=== PATIENT | male | born 1970 ===

== ENCOUNTER 2021-06-27 13:05 | Outpatient (CLI) | payer MEDICARE, SELFPAY ==
--- NOTE | 2021-06-27 13:14 | XR_ITS ---
WS: [id number] Exam: XR chest 2V* [id number] Date/Time of Exam: 06/27/2021 1:14 PM Reason For Exam: EXERTIONAL DYSPNEA No priors. Findings: The lungs are clear and fully expanded. Costophrenic angles are sharp. No infiltrates. Bronchovascula r relief appears normal. Cardiac silhouette is unremarkable. Bony elements are intact. XR/XR chest 2V* [id number] IMPRESSION: Unremarkable chest radiograph.
== END 2021-06-27 13:06 | disposition home or self-care (01) ==
LOC: RAD 13:10
PROVIDERS: PCP Registered Nurse; Visit Provider Internal Medicine Pulmonary Disease
DX: R06.09 Other forms of dyspnea (principal)
CPT/HCPCS: 71046

== ENCOUNTER 2021-11-30 14:15 | Outpatient (CLI) | payer MEDICARE, SELFPAY ==
--- NOTE | 2021-11-30 14:54 | PFTS_ITS ---
Date of Study:11/30/21 Date of Dictation: 12/02/2021 MECHANICS: Prebronchodilator forced vital capacity (FVC) is normal. Prebronchodilator forced expiratory volume in one second (FEV1) is normal. FEV1/FVC is normal. There is no postbronchodilator study. FLOW VOLUME LOOP: Normal . LUNG VOLUMES: Total lung capacity (TLC) is normal. Residual volume (RV) is reduced. DIFFUSING CAPACITY FOR CARBON MONOXIDE: Normal . INTERPRETATION: The pulmonary function tests are normal. Clinical correlation recommended. MTDD
--- NOTE | 2021-11-30 15:30 | CT_ITS ---
WS: [id number] CT CHEST CT-HIGH RESOLUTION, NONCONTRAST. HISTORY: Checking for bird fanciers lung disease. Technique: High-resolution chest CT is performed in inspiration, expiration, supine and prone positio jac. All CT scans at [facility] [place] use at least one of these dose optimization techniques: automated exposure control; mA and/or kV adjustment per patient size (includes targeted exams where dose is mat ched to clinical indication); or iterative reconstruction. DLP: 1753.51 mGy.cm COMPARISON: None. Findings: Lungs are mildly hyperexpanded. There is no traction bronchiectasis or honeycombing. There is a small intrapulmonary nodule along the RIGHT major fissure of 4 mm which are typically benign. Th ere is no groundglass opacification or intralobular septal thickening. No mosaic attenuation or air t rapping. No nodule or pneumonia. No mediastinal or hilar adenopathy. The heart is normal size. Small hiatal hernia. No adrenal mass. V isualized upper abdomen is normal. No osteoblastic or osteolytic bone disease. CT/CT chest wo con [id number] Impression: 1. Mild pulmonary hyperexpansion. 2. No evidence for hypersensitivity pneumonitis.
== END 2021-11-30 14:16 | disposition home or self-care (01) ==
PROVIDERS: PCP Registered Nurse; Visit Provider Internal Medicine Pulmonary Disease
DX: Z77.29 Contact with and (suspected) exposure to other hazardous substances (principal); J44.9 Chronic obstructive pulmonary disease, unspecified; R05.9 Cough, unspecified; F17.200 Nicotine dependence, unspecified, uncomplicated
CPT/HCPCS: 71250; 94010; 94618; 94726; 94729